=== PATIENT | female | born 1975 | race African-American/Black ===

== ENCOUNTER 2017-11-17 16:08 | Emergency (ER) | payer MEDICAID, OTHER ==
[~2017-11-17] VITALS: Ht 157.5 cm; Wt 124.7 kg
[~2017-11-17 16:08] MED LIST: ATIVAN1 MG ORAL; ATIVAN2 MG ORAL; BENADRYL50 MG PO; BENTYL10 MG ORAL; COLACE100 MG PO; NORCO 5-325 TA1 EACH PO; ONDANSETRON ODT4 MG ORAL; PROMETHAZINE HC25 M1 ORAL; PROTONIX40 MG ORAL; TRAMADOL HCL50 MG ORAL; VICODIN1 TA1 ORAL; ZOFRAN ODT4 MG ORAL
[2017-11-17 17:32] VITALS: BP 103/66
[2017-11-17] MEDS ORDERED: Norco 5mg/325mg tab ORAL ONE (17:45)
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
[2017-11-17 17:57] VITALS: BP 103/66
== END 2017-11-17 17:57 | disposition home or self-care (01) ==
LOC: EMR 17:40
DX: M54.2 Cervicalgia (principal); M25.512 Pain in left shoulder; M25.511 Pain in right shoulder; Z88.8 Allergy status to other drugs, medicaments and biological substances; Z88.6 Allergy status to analgesic agent; Z91.013 Allergy to seafood
CPT/HCPCS: 99283